=== PATIENT | female | born 1980 | race Caucasian/White ===

== ENCOUNTER → 2023-08-08 15:38 | Outpatient (BNVA) | payer MEDICARE, SELFPAY | PROVIDERS: Visit Provider Orthopaedic Surgery | DX: M48.062 Spinal stenosis, lumbar region with neurogenic claudication (principal); M54.50 Low back pain, unspecified | CPT/HCPCS: 36415; 72100; 80053; 81003; 85025; 99204 ==

== ENCOUNTER 2023-09-02 11:53 | Inpatient (IN) | payer MEDICARE, SELFPAY ==
[2023-09-02] VITALS (19 sets, daily range): BP systolic 100–156; BP diastolic 65–96; PULSE 78–108; RESP 11–18; TEMP 36.1–37.1; O2SAT 92–97; BMI 33.3
--- NOTE | 2023-09-02 | XR_ITS ---
WS: [id number] Exam: XR lumbar spine 2-3V* [id number] Date/Time of Exam: 09/02/2023 12:00 AM Reason For Exam: GENA PICS AP and lateral C-arm images of the lower lumbar spine are submitted. Images were obtained for intraop erative purposes.
[2023-09-02] MEDS: sodium chloride 0.9% 1,000 ML 30 ML IV (06:30)
--- NOTE | 2023-09-02 06:50 | ANES.PREANE2 ---
Pre-Anesthetic Assessment Height/Weight: Height 1.65 m Weight 90.718 kg Temp Pulse Resp BP Pulse Ox O2 Del Method 97 F L 88 18 142/94 96 Room Air 09/02/23 06:09 09/02/23 06:09 09/02/23 06:09 09/02/23 06:09 09/02/23 06:09 09/02/23 06:10 Preop Diagnosis: Lumbar stenosis with neurogenic claudication Operation Date: 09/02/23 07:00 Proposed Procedures p L5-S1 Spinal Fusion PSF(Not Applicable) - Leandro Sanz DO s Posterior Lumbar Interbody Fusion PLIF(Not Applicable) - DO sameer Manzano Lumbar Spine Decompression(Not Applicable) - Leandro Sanz DO Familial anesthetic complications: None Was Beta Morenita taken within 24 hours: N/A Was Clonidine taken within 24 hours: N/A Last intake: Intake Last Liquid Date 09/01/23 Last Liquid Time 22:00 Last Solid Date 09/01/23 Last Solid Time 18:00 Social Tobacco and No alcohol Exam alert, oriented x 3, clear to auscultation bilaterally and regular rate & rhythm Airway Mallampati: Class II Dentition: full Metabolic Hyperlipidemia Anesthetic Plan ASA status: 2 Anesthesia: General Risk of > 500 ml blood loss (7ml/kg in children): No Medications/Allergies Home Medications Medication Instructions Recorded Confirmed Last Taken Type cetirizine 10 mg capsule (All Day 10 mg PO DAILY PRN Allergy Symptoms 08/08/23 09/02/23 09/01/23 History Allergy (cetirizine)) duloxetine 60 mg capsule,delayed 60 mg PO DAILY 08/08/23 08/30/23 09/01/23 History release (Cymbalta) folic acid 1 mg tablet 1 mg PO DAILY 08/08/23 08/30/23 09/01/23 History lovastatin 20 mg tablet 20 mg PO DAILY 08/08/23 08/30/23 09/01/23 History magnesium 200 mg tablet 200 mg PO DAILY 08/08/23 08/30/23 09/01/23 History gabapentin 100 mg capsule 600 mg PO TID 08/20/23 08/30/23 09/01/23 History hydrocodone 5 mg-acetaminophen 325 1 tab PO BID PRN Pain 08/20/23 08/30/23 09/01/23 History mg tablet hydroxychloroquine 400 mg tablet 400 mg PO DAILY 08/20/23 08/30/23 09/01/23 History megestrol 40 mg tablet 40 mg PO DAILY 08/20/23 08/30/23 09/01/23 History montelukast 10 mg tablet 10 mg PO DAILY 08/20/23 08/30/23 09/01/23 History sertraline 50 mg tablet 50 mg PO DAILY 08/20/23 08/30/23 09/01/23 History Bone Growth Stimulator #1 ea 08/26/23 Unknown Rx potassium 99 mg PO DAILY 09/02/23 09/02/23 09/01/23 History Allergies Allergy/AdvReac Type Severity Reaction Status Date / Time adhesive tape Allergy ALGY-Rash Verified 09/02/23 06:23 aspirin [From Arthritis] Allergy unknown Verified 08/30/23 09:00 caffeine [From Arthritis] Allergy unknown Verified 08/30/23 09:00 gatorade Allergy Severe ALGY-Swell Uncoded 09/02/23 06:28 Lip/Tongue/Throat pravastatin Allergy rash, Uncoded 08/30/23 09:00 palpitations Data Anesthesia Cardiac Studies: No Data to Display
--- NOTE | 2023-09-02 07:16 | W.PM.OPSUD ---
Surgery/Procedure H&P Update DATE OF PROCEDURE: September 02, 2023 DATE H&P PERFORMED: 08/20/23 H&P UPDATE INFORMATION: I have reviewed H&P completed within last 30 days, I have examined patient prior to procedure and No changes to prior documentation PREOP DIAGNOSIS: Lumbar stenosis with neurogenic claudication PLANNED PROCEDURE: Operation Date: 09/02/23 07:00 Proposed Procedures p L5-S1 Spinal Fusion PSF(Not Applicable) - Leandro Sanz DO s Posterior Lumbar Interbody Fusion PLIF(Not Applicable) - DO sameer Manzano Lumbar Spine Decompression(Not Applicable) - Leandro Sanz DO
[2023-09-02] MEDS: fentaNYL 50 mcg/mL INJ 2mL IVP (08:04)
[2023-09-02] MEDS: ondansetron 2 mg/ML SDV 2 mL 4 MG IVP ×2 (08:05→23:07)
[2023-09-02] MEDS: ceFAZolin 2,000 MG in sodium chloride 0.9% (plus) 50 ML 100 MG IV ×2 (09:21→17:37)
[2023-09-02] MEDS: heparin, porcine 1,000 unit/mL INJ 10 mL 10000 UNIT IRRIGATION (10:41)
[2023-09-02] MEDS: vancomycin 1,000 MG SDV 1000 MG XX (10:42)
[2023-09-02] MEDS: lidocaine-epi 1% 20 mL INJ 10 ML INJECTION (10:42)
--- NOTE | 2023-09-02 12:20 | P.OP_ITS ---
Operative Report Date of procedure: September 02, 2023 Pre-op diagnosis: 1. Lumbar stenosis with neurogenic claudication 2. Reherniation of disc 3. Failed back syndrome Post-op diagnosis: same Procedure done: 1. L5/S1 Interbody fusion with posterolateral fusion 2. Instrumentation L5/S1 3. Cage at L5/S1 4. L5-S1 laminectomy with facetectomy 5. use of autograft from same incision 6. allograft 7. Bone marrow aspirate from right iliac crest 8. Computer navigation stereotactic of the spine 9. Revision spine surgery Surgeon: Leandro Sanz DO Estimated blood loss (mL): 150 Procedure: 1. L5/S1 Interbody fusion with posterolateral fusion 2. Instrumentation L5/S1 3. Cage at L5/S1 4. L5-S1 laminectomy with facetectomy 5. use of autograft from same incision 6. allograft 7. Bone marrow aspirate from right iliac crest 8. Computer navigation stereotactic of the spine 9. Revision spine surgery Patient is brought to the operative suite. After undergoing anesthesia, the patient had neuro monitoring attached. Patient was then placed in the prone position on the Devaughn table. All areas of impingement were well-padded. Patient was then prepped and draped in the normal sterile fashion. Skin incision was then made over the L5/S1 level using previous incision. Subperiosteal dissection was made out to the transverse processes of L5 and sacral ala. The [employer] bone marrow aspirate kit was used to aspirate bone marrow aspirate. This was done by using the sharp probe to open up the bone. Aspiration was performed and then the blunt probe was then used to dissect down to through the bone tunnel. An aspirating well drawn back a millimeter approximately 20 cc of bone marrow aspirate was used. Admixed with the allograft and autograft bone that will be used. The fiducial was then attached to the pins there were drilled into the pelvis. 2 pins were drilled in the pelvis and these pins were later removed at the end of the case. The C-arm was then brought in and spun around the patient information from the C-arm was then loaded in the computer through the fiducial for the placement of computer navigated screws. The technique for placing the pedicle screws was to use a drill followed by the gearshift probe linked to computer navigation. Followed by the ball probe to feel the superior inferior medial lateral saeed of the pedicles. Then placement of the screws. Was done at each pedicle linked to computer navigation. Screws were placed at L5 bilaterally and S1. Next attention was brought to performing the laminectomy ofL5. This was done using the high-speed bur Kerrisons and curettes. Once the lamina was removed and then attention was brought to performing a partial facetectomy on the contralateral side. This was done again using the high-speed bur curettes and Kerrisons. The ligamentum flavum was taken down bilaterally from L5 to S1. P artial of the ligament was scarred down to the dura attention was then brought to the facet on the ipsilateral side. The facet was taken down. The S1 nerve was decompressed as it passed around the S1 pedicle. The laminectomy was done for purposes of decompressing the nerve as well as placement of the cage. The L5 nerve was identified as it traversed through the L5/S1 foramen. The thecal sac was identified and retracted. The L5/S1 disc base was identified. Using a knife the disc base was opened. And then sequential ronald were placed. The first shaver was a 6 and the last shaver was a 7. Using a pituitary and down going curette the endplates were scraped and disc material was removed from the space. Once adequate decompression of the disc base was felt to be had. Osteoamp sponge was packed into the anterior aspect of the disc base. Then a size 8 cage from [email or web address] was placed after packing osteoamp into the cage. While placing the cage the thecal sac and S1 nerve was protected. C arm was used to ensure that the cages placed in the appropriate position. Attention was then brought to attaching the rods to the screws placed in the L5 and S1 bilaterally. Caps were torqued into position. Locking the construct in place. Wound was copiously irrigated and then attention was brought to decorticating the facets and transverse processes laterally. Bone that was taken down from the lamina was used along with osteoamp fibers and sponges were packed into the lateral gutters along the facet joints. This was done bilaterally. Wound was then closed in a layered fashion starting with the thoracolumbar fascia. 0-vicryl was used the sub cutaneous tissue was closed with 2-0 vicryl and skin with 4-0 monocryl. Glue was then used to seal the skin and a steril dressing was applied. Patient was then placed in the supine position. The endotracheal tube was removed and patient was transferred to the PACU in stable condition.
[2023-09-02] MEDS: lactated ringers 1,000 ML 90 ML IV (13:34)
[2023-09-02] MEDS: HYDROcodone-acetaminophen 5-325 mg Tablet PO ×2 (13:39→17:37)
--- NOTE | 2023-09-02 14:10 | ANE.PACU2 ---
Inpatient post-anesthesia follow up: Airway intact: Yes Vital signs: Temperature 98.7 F Pulse Rate 102 Respiratory Rate 15 Blood Pressure 148/96 Pulse Oximetry 95 Oxygen Delivery Me thod Room Air Oxygen Flow Rate 8 Fraction of Inspir ed Oxygen Hydration adequate: Yes Nausea and vomiting: No Pain level: 1 Mental status: Baseline
[2023-09-02] MEDS: ketorolac 30 mg/mL INJ IVP ×2 (14:39→23:07)
[2023-09-02] MEDS: gabapentin 300 mg Capsule 600 MG PO ×2 (14:39→21:00)
[2023-09-02] MEDS: nicotine 21 mg Patch 1 PATCH TRANSDERMA (15:56)
[2023-09-02] MEDS: docusate sodium 100 mg Capsule PO (17:37)
[2023-09-02] MEDS: morphine 4 mg/mL SDV 1 mL 2 MG IVP (19:47)
[2023-09-03] VITALS: BP 119/72; PULSE 76; RESP 18; TEMP 36.8; O2SAT 96
[2023-09-03] MEDS: lactated ringers 1,000 ML 90 ML IV (01:12)
[2023-09-03] MEDS: ceFAZolin 2,000 MG in sodium chloride 0.9% (plus) 50 ML 100 MG IV ×2 (01:13→09:47)
[2023-09-03 03:50] VITALS: BP 119/81; PULSE 80; RESP 17; TEMP 36.7; O2SAT 98
[2023-09-03] MEDS: HYDROcodone-acetaminophen 5-325 mg Tablet PO ×2 (05:09→10:35)
[2023-09-03 07:30] VITALS: BP 111/71; PULSE 96; RESP 17; TEMP 36.9; O2SAT 96
--- NOTE | 2023-09-03 07:57 | P.DS_ITS ---
Discharge Providers Date of Admission: 09/02/23 11:53 Date of Discharge: September 03, 2023 Attending Provider at Admission: Leandro Sanz DO Attending Provider at Discharge: Leandro Sanz DO Primary Care Provider: NEGIN PINEDA MD Reason for Visit Reason for Visit: M48.062 Physical Exam Narrative: Patient is sitting up eating comfortable. Pain controlled Urinary Catheter Management: Hanson: Cath Placed During This Visit: yes Reason for Continuing Indwelling Catheter: Acute Urinary Retention or Obstruction Urinary Catheter Date of Insertion: 09/02/23 Urinary Catheter Time of Insertion: 09:36 Discharge Data Studies Completed and Pending Pending at discharge Category Date Time Status XR lumbar spine 2-3V* [id number] Routine Exams 09/02/23 00:00 Taken Vitals Last Vital Signs Temp 98.4 F 09/03/23 07:30 Pulse 96 09/03/23 07:30 Resp 17 09/03/23 07:30 BP 111/71 09/03/23 07:30 Pulse Ox 96 09/03/23 07:30 O2 Del Method Room Air 09/03/23 07:30 O2 Flow Rate 8 09/02/23 12:35 Discharge Plan Discharge Patient Disposition: Home Condition: Stable Prescriptions: New hydrocodone-acetaminophen 10-325 mg tablet 1 tab PO Q4H PRN (Reason: pain) 7 Days Qty: 40 0RF Continued magnesium 200 mg tablet 200 mg PO DAILY duloxetine [Cymbalta] 60 mg capsule,delayed release(DR/EC) 60 mg PO DAILY lovastatin 20 mg tablet 20 mg PO DAILY All Day Allergy (cetirizine) 10 mg capsule 10 mg PO DAILY PRN (Reason: Allergy Symptoms) folic acid 1 mg tablet 1 mg PO DAILY gabapentin 100 mg capsule 600 mg PO TID megestrol 40 mg tablet 40 mg PO DAILY montelukast 10 mg tablet 10 mg PO DAILY sertraline 50 mg tablet 50 mg PO DAILY hydroxychloroquine 400 mg tablet 400 mg PO DAILY (DME) Bone Growth Stimulator See Rx Instructions .Route .MEDSUPPLY Qty: 1 0RF Rx Instructions: As directed potassium 99 mg PO DAILY Discontinued hydrocodone-acetaminophen 5-325 mg tablet 1 tab PO BID PRN (Reason: Pain) Discharge Orders: Discharge Order (Routine); Ordered 09/03/23 Ordered By: Leandro Sanz Referrals: Leandro Sanz DO [Physician] - Discharge Diet: Advance as tolerated Discharge Activity: Limit activity as instructed Patient Instructions: Opioid Safety Activity Restrictions/Additional Instructions: [facility] The following is a list of instructions, from your provider, to follow upon your discharge to ensure you have the optimal recovery from your recent injury orsurgery. Follow-up care is a payne part of your treatment and safety. Be sure to make and go to all appointments, and call your doctor if you are having problems. If you do not already have a follow-up appointment made, call Dr. Sanz office in the next 1-3 days to make follow up appointment for 1 weeks at [phone]. It is also a good idea to know your test results and keep a list of the medicines you take. Medications will be prescribed for you at your provider's discretion. These medications are to be used as instructed; if they are taken more often that prescribed they will not be refilled early and in most cases will not be refilled at all. > When a refill is needed,you should contact tarah domínguez 2-3 business days before your prescription runs out. Medications will NOT be refilled by java front end web developer providers after hours! > Many pain medications contain Tylenol (Acetaminophen). Do not consume more than 4,000 mg of Tylenol per day in total with any combination ofmedications. > Pain medications can cause constipation. Please use an over the counter stool softener as directed, while taking pain medications. Consulty our local pharmacist with questions or recommendations on stool softeners. If constipation persists, contact our office or your primary care provider. > While under our care,you are not to receive pain medications or other controlled substances from any other provider unless our office is notified and approves. Any attempts to do so will result in refusal to prescribe any further pain medications and possible dismissal from our practice. ? Your wound and/or dressing should remain clean and dry for 7 days after surgery. On postoperative day 7 we will change the dressing in the clinic Do not put any creams or ointments on theincision > It is normal for there to be a small amount of discharge (bloody or blood tinged) present from a surgical wound for the first 1-3days. > The wound should be examined twice a day for signs of infection. Mild redness or bruising is to be expected but indications that an infection maybe starting would include; An increase in redness, swelling, or discharge, a foul odor present around the incision, and/or a fever greater than 101 ?F ? Showering is permitted, however we ask that you do not take a bath, sit in a whirlpool / Jacuzzi, or go swimming for 1 month. For only the first 2 days after surgery, lt wilt be necessary for you to cover your wound/dressing wi th plastic and tape to keep it dry. ? Walking is essential for the healing process after surgery. We would like you to slowly advance your walking. This should be done on relatively flat clear ground (inside or out) or can be done on a treadmill. Remember this goal does not have to happen all at once, slowly increase your distance and duration. This can be broken into more more than one walk per day as tolerated. Patients who walk as directed after surgery rarely require Physical Therapy. In the unlikely event this issue arises your provider will direct hospital staff to make the appropriate arrangements. ? No lifting over 5 pounds {a gallon of milk) or bending/twisting until further notice. Each of these activities places an unnecessary amount of stress onto the body and can impede the delicate healing process. > Instead of bending at the waist, keep your back straight and bend at the knees. > Instead of twisting your torso, keep your back straight and turn your entire body with your feet. ? You may sleep in any position which makes you comfortable. Many patients find comfort sleeping in a reclining chair. It is not abnormal to have difficulty sleeping for the first several weeks following your surgery. We recommend trying Benadry! or Tylenol PM as directed to help with your sleeping difficulties. Both medications are over the counter and available withoutprescription. ? NO SMOKING!!! Smoking dramatically increases the probability of developing postoperative wound infections. ? Common complaints after lumbar and/or thoracic spine surgery include, but are not limited to: numbness and/or tingling in the legs, pain around the incision and surrounding tissues, muscle spasms, or stiffness of the middle to low back. Contact our office if these symptoms persist or if an acute change occurs. ? No driving for the first 3-5days, and not while taking narcotics [] until seen at your follow-up appointment and cleared. There are no restrictions for riding on short trips, however if you take a longer trip, arrangements should be made to make regular stops to get out of the vehicle and stretch . ? Swelling is an unfortunate event that will take place with any surgery and is the primary source of your postoperative discomfort. While walking and regular approved activities helps control inflammation, there are additional steps you can take to minimizeswelling. > Place ice over the surgical site and surrounding tissue for twenty minutes, followed by applying a low/medium heat (heating pad) for an additional twenty minutes every 1-2 hours as needed for painrelief. > You may use of over the counter anti-inflammatory medications (Ibuprofen, Motrin, Aleve, Advil, etc) as directed on the package label. These types of medicines wm significantly reduce the amount of discomfort you experience after surgery from swelling. It should be noted that if you have and allergy to any of these medications, or a history of ulcers or kidney disease you should consult you primary care provider prior to starting these medications. Discharge Attestations Time Spent in Discharge Care*: less than 30 min Quality Metrics Clinical Quality Measures [ No reported AMI, CVA or VTE this stay] Coding Level of Care Code Acute Code for Chg Fwjany
--- NOTE | 2023-09-03 09:00 | PC.PHAR ---
MEDICATIONS CONFIRMED BY RN-VERIFIED AND CORRECTED DRUG, STRENGTH, AND DOSAGE 09/03/23.
--- NOTE | 2023-09-03 09:39 | PC.CHAP ---
Pastoral Care Encounter/Spiritual Assessment Type of Contact [] Declined android ios developer visit [] Patient/Family/Request visit [] Outpatient visit [] Follow-up visit [] Physician referral [] Code/Alert [x] Routine visit [] Staff referral [] Actively dying [] Patient sleeping [] Family support [] [] Out of room [] Palliative care [] [] Receiving care in room [] Pre-surgical visit [] Trauma [] Long length of stay [] ICU visit [] Other: Relational/Emotional Strength [x] Patient feels connected with others/family/visitors/staff [] Distress [] Loneliness/isolation [] Abandonment Spirituality of Patient [x] Person of Rehana [] Attends Jewish of their Rehana [x] Believes in Prayer [] Reads Bible or Jain materials [] There are Spiritual issues to be addressed Direct Chill Casting Operator Interventions [x] Prayer [] Active listening [] Non-anxious presence [x] Spiritual/emotional support [] Crisis/trauma care [] Spiritual counseling [] Bereavement support [] Provided bereavement packet [] Provided Bible/devotional materials [] Provided toy/stuffed animal, coloring book to patient or family member [] Provided Communion [] Anointing/[place] [] Salvation [x] Completed spiritual assessment [] Other: Impact on Illness or Injury [] Angry [] Fearful [] Anxious [] Often cries [] Exhaustion [] Unable to work [] Unable to attend catholic [] Unable to walk/stand [] Unable to read [] Unable to drive [] Unable to eat/drink [] Unable to sleep [] Unable to be with family [] Patient intubated [] Other: Summary Time spent with patient 5 min
[2023-09-03] MEDS: duloxetine 60 mg Capsule PO (09:45)
[2023-09-03] MEDS: gabapentin 300 mg Capsule 600 MG PO (09:45)
[2023-09-03] MEDS: folic acid 1 mg Tablet PO (09:45)
[2023-09-03] MEDS: magnesium oxide 400 mg tablet 200 MG PO (09:45)
[2023-09-03] MEDS: sertraline 50 mg Tablet PO (09:45)
[2023-09-03] MEDS: atorvastatin 40 mg Tablet 20 MG PO (09:45)
[2023-09-03] MEDS: cetirizine 10 mg Tablet PO (09:45)
[2023-09-03] MEDS: montelukast sodium 10 mg Tablet PO (09:46)
[2023-09-03] MEDS: nicotine 21 mg Patch 1 PATCH TRANSDERMA (09:46)
[2023-09-03] MEDS: hydroxychloroquine 200 mg Tablet 400 MG PO (09:46)
--- NOTE | 2023-09-03 10:57 | PC.NURSE ---
Provider ordered for hemovac drain to be removed. Drain was removed by this nurse at 1045. Patient tolerated well.
[2023-09-03 10:58] VITALS: BP 111/71; PULSE 96; RESP 17; TEMP 36.9; O2SAT 96
== END 2023-09-03 10:59 | disposition home health service (06) | DRG 455 ==
LOC: MEDSURG 13:59
PROVIDERS: Admitting Provider Orthopaedic Surgery; PCP Family Medicine; Visit Provider Orthopaedic Surgery
PROC: 0SG30AJ Fusion of Lumbosacral Joint with Interbody Fusion Device, Posterior Approach, Anterior Column, Open Approach (ICD-10-PCS; principal; 2023-09-02 07:00)
PROC: 0SG30AJ Fusion of Lumbosacral Joint with Interbody Fusion Device, Posterior Approach, Anterior Column, Open Approach (ICD-10-PCS; CPT 22612; 2023-09-02 07:00)
PROC: 0SG30AJ Fusion of Lumbosacral Joint with Interbody Fusion Device, Posterior Approach, Anterior Column, Open Approach (ICD-10-PCS; CPT 63005; 2023-09-02 07:00)
DX: M48.062 Spinal stenosis, lumbar region with neurogenic claudication (principal); M96.1 Postlaminectomy syndrome, not elsewhere classified
CPT/HCPCS: 51702; 72100; 76000; 97116; 97162; 97530; C1713; J0690; J1100; J1170; J1644; J1885; J2270; J2405; J2704; J3010; J3370; J3490; J7030; J7120

== ENCOUNTER → 2023-09-12 09:54 | Outpatient (BNVA) | payer MEDICARE, SELFPAY | PROVIDERS: PCP Family Medicine; Visit Provider Orthopaedic Surgery | DX: Z98.1 Arthrodesis status (principal) | CPT/HCPCS: 99024 ==

== ENCOUNTER → 2023-10-10 14:31 | Outpatient (BNVA) | payer MEDICARE, SELFPAY | PROVIDERS: PCP Family Medicine; Visit Provider Orthopaedic Surgery | DX: Z98.1 Arthrodesis status (principal) | CPT/HCPCS: 72100; 99024 ==

== ENCOUNTER → 2023-11-19 13:14 | Outpatient (BNVA) | payer MEDICARE, MEDICAID, SELFPAY | PROVIDERS: PCP Family Medicine; Visit Provider Orthopaedic Surgery | DX: Z98.1 Arthrodesis status (principal) | CPT/HCPCS: 72100; 99024 ==

== ENCOUNTER → 2024-02-20 12:39 | Outpatient (BNVA) | payer MEDICARE, MEDICAID, SELFPAY | PROVIDERS: PCP Family Medicine; Visit Provider Orthopaedic Surgery | DX: Z98.1 Arthrodesis status (principal) | CPT/HCPCS: 72100; 99214 ==

== ENCOUNTER → 2024-04-23 13:38 | Outpatient (BNVA) | payer MEDICARE, MEDICAID, SELFPAY | PROVIDERS: PCP Family Medicine; Visit Provider Orthopaedic Surgery | DX: M54.9 Dorsalgia, unspecified (principal); M54.2 Cervicalgia | CPT/HCPCS: 72050; 72072; 72110; 99214 ==

== ENCOUNTER 2024-04-30 12:40 | Outpatient (CLI) | payer MEDICARE, MEDICAID, SELFPAY | END 2024-04-30 12:41 | disposition home or self-care (01) | PROVIDERS: PCP Family Medicine; Visit Provider Orthopaedic Surgery | DX: M48.02 Spinal stenosis, cervical region (principal); M47.894 Other spondylosis, thoracic region; M40.294 Other kyphosis, thoracic region; M43.8X4 Other specified deforming dorsopathies, thoracic region; M43.8X2 Other specified deforming dorsopathies, cervical region; M25.78 Osteophyte, vertebrae; M50.222 Other cervical disc displacement at C5-C6 level; R93.7 Abnormal findings on diagnostic imaging of other parts of musculoskeletal system; M47.892 Other spondylosis, cervical region; M50.33 Other cervical disc degeneration, cervicothoracic region; M48.03 Spinal stenosis, cervicothoracic region | CPT/HCPCS: 72141; 72146 ==

== ENCOUNTER 2024-04-30 13:45 | Outpatient (CLI) | payer MEDICARE, MEDICAID, SELFPAY ==
--- NOTE | 2024-04-30 13:45 | MR_ITS ---
WS: [id number] MRI CERVICAL SPINE NONCONTRAST TECHNIQUE: Sagittal T1, T2 and STIR imaging. Axial T2, gradient, and fiesta imaging. CLINICAL INFORMATION: Neck pain COMPARISON: None. FINDINGS: Straightening of the normal cervical lordosis. Cord signal is normal. Mild disc bulging in the mid ce rvical spine C4-C6. No high-grade central canal narrowing. C2-C3: Mild facet arthropathy. C3-C4: Mild facet arthropathy. C4-C5: Mild disc osteophyte complex with endplate ridging. Mild facet arthropathy. Mild LEFT bony for aminal narrowing. C5-C6: Mild disc osteophyte complex with a LEFT paracentral protrusion. Slight indentation cervical c ord. Mild central canal stenosis. Mild RIGHT greater than LEFT bony foraminal narrowing. C6-C7: Disc osteophyte complex with endplate ridging. Moderate to severe LEFT and moderate RIGHT bony foraminal narrowing. Mild central canal stenosis. C7-T1: Mild disc bulging with endplate ridging. Mild LEFT and no significant RIGHT foraminal narrowin g. Spinal canal is patent. Visualized brain stem structures: Normal. Prevertebral soft tissues: Normal. MR/MR cervical spin wo con* [id number] IMPRESSION: 1. Straightening of the normal cervical lordosis. Mild cervical curve. 2. LEFT paracentral disc osteophyte protrusion C5-C6 with slight indentation o n the cervical cord. Mild central canal stenosis. 3. Mild central canal stenosis C6-7. 4. Moderate to severe LEFT C6-7 bony foraminal narrowing. 5. Partially visualized somewhat prominent thyroid. This could be further eval uated with ultrasound.
--- NOTE | 2024-04-30 14:30 | MR_ITS ---
WS: [id number] MRI THORACIC SPINE WITHOUT CONTRAST TECHNIQUE: Sagittal T1, T2 and STIR imaging. Axial T2 imaging. Noncontrast imaging obtained. CLINICAL INFORMATION: Back pain COMPARISON: None. FINDINGS: Tiny shallow central protrusion T5-T6. Shallow RIGHT paracentral protrusion at T6-T7 with s light indentation on the thoracic cord. Tiny central protrusion T7-T8. Mild thoracic curve. No acute compression. No high-grade central canal stenosis. Cord signal is alex l. Mild facet arthropathy lower thoracic spine. No significant disc extrusions or protrusions. Mild s pondylitic changes. Adrenal glands are normal. MR/MR thoracic spin wo con* [id number] IMPRESSION: 1. No acute thoracic spine findings. 2. Mild thoracic curve with mild thoracic kyphosis. 3. Cord signal is normal. No significant central canal stenosis. 4. Mild facet arthropathy lower thoracic spine. 5. A few tiny protrusions in the midthoracic spine. No significant central can al or foraminal stenosis.
== END 2024-04-30 13:46 | disposition home or self-care (01) ==
LOC: RAD 06-07 14:05
PROVIDERS: PCP Family Medicine; Visit Provider Orthopaedic Surgery
DX: M47.894 Other spondylosis, thoracic region (principal); M40.294 Other kyphosis, thoracic region; M47.892 Other spondylosis, cervical region; M25.78 Osteophyte, vertebrae; M50.33 Other cervical disc degeneration, cervicothoracic region; M48.02 Spinal stenosis, cervical region
CPT/HCPCS: 72141; 72146

== ENCOUNTER → 2024-06-04 14:04 | Outpatient (BNVA) | payer MEDICARE, MEDICAID, SELFPAY | PROVIDERS: PCP Family Medicine; Visit Provider Orthopaedic Surgery | DX: Z98.1 Arthrodesis status (principal) | CPT/HCPCS: 99214 ==

== ENCOUNTER → 2024-07-28 10:00 | Outpatient (BNVA) | payer MEDICARE, SELFPAY | PROVIDERS: PCP Family Medicine; Visit Provider Anesthesiology Pain Medicine | DX: M54.6 Pain in thoracic spine (principal); M79.18 Myalgia, other site | CPT/HCPCS: 99213 ==

== ENCOUNTER → 2024-08-25 07:58 | Outpatient (BNVA) | payer MEDICARE, MEDICAID, SELFPAY | PROVIDERS: PCP Family Medicine; Visit Provider Anesthesiology Pain Medicine | DX: M79.18 Myalgia, other site (principal); M54.6 Pain in thoracic spine; F17.210 Nicotine dependence, cigarettes, uncomplicated | CPT/HCPCS: 20553; 99213; J1010; J3490 ==

== ENCOUNTER → 2024-09-02 09:06 | Outpatient (BNVA) | payer MEDICARE, MEDICAID, SELFPAY | PROVIDERS: PCP Family Medicine; Referring Provider Family Medicine; Visit Provider Psychiatry & Neurology Neurology | DX: G44.86 Cervicogenic headache (principal); M79.18 Myalgia, other site; G24.9 Dystonia, unspecified | CPT/HCPCS: 99203 ==

== ENCOUNTER 2024-09-09 12:22 | Outpatient (CLI) | payer MEDICARE, MEDICAID, SELFPAY ==
--- NOTE | 2024-09-09 13:00 | MR_ITS ---
WS: [id number] MRI BRAIN WITH AND WITHOUT CONTRAST HISTORY: G43.409 - Hemiplegic migraine, not intractable, without s... COMPARISON: None available. TECHNIQUE: Multiplanar imaging performed through the brain with MultiHance 19 ml's IV. No acute infarcts are seen. Arce-white matter differentiation is well preserved. Normal hippocampal formations. No susceptibility artifacts or prior lacunar infarcts. Ventricles and extra-axial spaces are normal. Clivus and pituitary gland are normal. Visualized posterior fossa and brainstem are also normal. Postcontrast images are negative for masses or vascular malformations. Postcontrast imaging quality has decreased due to motion artifact. Dural venous sinuses are normal. Paranasal sinuses: Small mucous retention cysts in the floors of the maxillary sinuses. Mastoid air cells: Normal. Calvarium and scalp: Normal. MR/MR head wo/w con [id number] IMPRESSION: 1. No acute intracranial hemorrhage or edema. 2. No masses or prior infarct. 3. No inferior displacement of the cerebellar tonsils. No posterior fossa abno rmality.
--- NOTE | 2024-09-09 13:45 | MR_ITS ---
WS: [id number] MRA CAROTID ARTERIES HISTORY: G43.409 - Hemiplegic migraine, not intractable, without s... COMPARISON: None available. TECHNIQUE: MRA is performed with intravenous gadolinium. MIP and source images are reviewed. Right: Normal cervical carotid artery. No internal/external carotid artery stenosis. Left: Normal cervical carotid artery. No internal or external carotid artery stenosis. Subclavian Arteries: Normal. Vertebral Arteries: Normal, LEFT is dominant. No stenosis. MR/MR angio neck w con* [id number] IMPRESSION: Normal MR angiogram carotid arteries.
--- NOTE | 2024-09-09 14:15 | MR_ITS ---
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 COMPARISON: None available. TECHNIQUE: 3-D MR angiography is performed of the [place] [facility] [place]. All images are reviewed including source images. Dominant distal LEFT vertebral artery. Small caliber but patent RIGHT vertebral artery. Normal basilar artery. Posterior cerebral arteries are widely patent. Posterior communicating arteries are poorly visualized, this is probably due to mild motion artifact. Intracranial carotid arteries are patent. Evaluation is limited by motion artifact. Middle cerebral and anterior cerebral arteries are both patent. No aneurysms. MR/MR angio head wo con [id number] IMPRESSION: 1. No intracranial atherosclerotic disease or aneurysm. 2. Dominant LEFT vertebral artery. 3. Poorly visualized posterior communicating arteries. Probably due to mild mo tion artifact.
[2024-09-09] MEDS: gadobenate dimeglumine 20 mL vial 19 ML IV (15:18)
== END 2024-09-09 12:23 | disposition home or self-care (01) ==
PROVIDERS: PCP Family Medicine; Visit Provider Psychiatry & Neurology Neurology
DX: G43.409 Hemiplegic migraine, not intractable, without status migrainosus (principal); I67.1 Cerebral aneurysm, nonruptured; M27.40 Unspecified cyst of jaw
CPT/HCPCS: 70544; 70548; 70553

== ENCOUNTER → 2024-09-30 09:41 | Outpatient (BNVA) | payer MEDICARE, MEDICAID, SELFPAY | PROVIDERS: PCP Family Medicine; Visit Provider Anesthesiology Pain Medicine | DX: M25.511 Pain in right shoulder (principal); M54.6 Pain in thoracic spine; M79.18 Myalgia, other site | CPT/HCPCS: 73030; 99214 ==

== ENCOUNTER → 2024-10-07 12:27 | Outpatient (BNVA) | payer MEDICARE, MEDICAID, SELFPAY | PROVIDERS: PCP Family Medicine; Visit Provider Anesthesiology Pain Medicine | DX: M79.18 Myalgia, other site (principal); M54.6 Pain in thoracic spine; M25.511 Pain in right shoulder | CPT/HCPCS: 20553; 99214; J1010; J3490 ==

== ENCOUNTER → 2024-11-25 12:37 | Outpatient (BNVA) | payer MEDICARE, SELFPAY | PROVIDERS: PCP Family Medicine; Visit Provider Psychiatry & Neurology Neurology | DX: G44.86 Cervicogenic headache (principal); M79.18 Myalgia, other site; G24.9 Dystonia, unspecified | CPT/HCPCS: 99212 ==

== ENCOUNTER → 2024-12-07 12:31 | Outpatient (BNVA) | payer MEDICARE, SELFPAY | PROVIDERS: PCP Family Medicine; Visit Provider Anesthesiology Pain Medicine | DX: M79.18 Myalgia, other site (principal); M54.6 Pain in thoracic spine; M25.511 Pain in right shoulder; F17.210 Nicotine dependence, cigarettes, uncomplicated | CPT/HCPCS: 20553; 99214; J1010; J3490 ==

== ENCOUNTER → 2025-02-08 12:44 | Outpatient (BNVA) | payer MEDICARE, SELFPAY | PROVIDERS: PCP Family Medicine; Visit Provider Anesthesiology Pain Medicine | DX: M79.18 Myalgia, other site (principal); M54.6 Pain in thoracic spine; M25.511 Pain in right shoulder | CPT/HCPCS: 20553; 99214; J1010; J3490 ==

== ENCOUNTER → 2025-05-05 13:07 | Outpatient (BNVA) | payer MEDICARE, MEDICAID, SELFPAY | PROVIDERS: PCP Family Medicine; Visit Provider Anesthesiology Pain Medicine | DX: M79.18 Myalgia, other site (principal); M54.6 Pain in thoracic spine; M25.511 Pain in right shoulder; F17.210 Nicotine dependence, cigarettes, uncomplicated | CPT/HCPCS: 20553; 99214; J1010; J3490 ==